=== PATIENT | female | born 1990 | race Caucasian/White ===

== ENCOUNTER 2019-08-03 12:02 | Emergency (ER) | payer OTHER ==
--- OUTSIDE RECORDS SUMMARY | 2019-08-03 12:04 | XMS REPORT | Clinical Summary ---
:1990 Author Organization [facility] Address [address] [place] [address] Care Team Providers Name Role Phone Tyshawn Dietz MD Primary Care Provider Allergies No Known Allergies Medications Medication Sig Dispensed Refills Start Date End Date Status ibuprofen Take 200 mg by 0 Active (ADVIL,MOTRIN) 200 MG mouth every 6 tablet (six) hours as needed for mild pain. Active Problems Problem Noted Date Flexor tendon laceration of left wrist with open wound 12/17/2016 Family History Medical History Relation Name Comments Heart disease Maternal Grandfather Cancer Maternal Grandmother Relation Name Status Comments Maternal Grandfather Maternal Grandmother Social History Tobacco Use Types Packs/Day Years Used Date Current Every Day Smoker Cigarettes Started: 2008 Tobacco Cessation: Counseling Given: No Alcohol Use Drinks/Week oz/Week Comments Yes Sex Assigned at Date Recorded Not on file Job Start Date Occupation Industry Not on file Not on file Not on file Travel History Travel Start Travel End No recent travel history available. 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
--- NOTE | 2019-08-03 12:43 | ER ---
Nurse's Notes [facility] Name: Kendra Hoskins Age: 29 yrs Sex: Female : 1990 Arrival Date: 08/03/2019 Time: 12:05 Bed 7 Private MD: Diagnosis: Laceration without foreign body of thumb without damage to nail-left Presentation: 08/03 12:12 Presenting complaint: Patient states: was trying to cut through some duct tape and iw knife slipped and punctured top of left hand, puncture wound to webbing area between thumb and index finger, states was spurting, pressure dressing applied. Care prior to arrival: Bleeding of injury controlled. 12:12 Acuity: CLYDE 3 iw 12:12 Method Of Arrival: Ambulatory iw 12:16 Transition of care: patient was not received from another setting of care. Onset of iw symptoms was August 03, 2019. Risk Assessment: Do you want to hurt yourself or someone else? Patient reports no desire to harm self or others. Initial Sepsis Screen: Does the patient meet any 2 criteria? No. Patient's initial sepsis screen is negative. Does the patient have a suspected source of infection? No. Patient's initial sepsis screen is negative. 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 Assessment: 12:25 General: Appears uncomfortable, Behavior is calm, cooperative. Pain: Complains of pain aa5 in left hand Pain does not radiate. Pain currently is 8 out of 10 on a pain scale. Quality of pain is described as sharp, Is continuous. Neuro: Level of Consciousness is awake, alert, obeys commands, Oriented to person, place, time, situation. Cardiovascular: Heart tones S1 S2 present Capillary refill < 3 seconds is brisk in bilateral fingers Rhythm is regular. Respiratory: Airway is patent Respiratory effort is even, unlabored, Respiratory pattern is regular, symmetrical. GI: No signs and/or symptoms were reported involving the gastrointestinal system. : No signs and/or symptoms were reported regarding the genitourinary system. EENT: No signs and/or symptoms were reported regarding the EENT system. Derm: Skin is pink, warm \\T\\ dry. Laceration difficult to visualize at this time due to moderate bleeding to site, pressure dressing in place. Musculoskeletal: Range of motion: intact in all extremities. 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 Pt agrees to leave ER at this time. PA was notified. . Vital Signs: 12:17 BP 116 / 82; Pulse 104; Resp 16; Temp 98.0; Pulse Ox 100% on R/A; Weight 49.9 kg; iw Height 5 ft. 0 in. (152.40 cm); Pain 8/10; 12:17 Body Mass Index 21.48 (49.90 kg, 152.40 cm) iw ED Course: 12:05 Patient arrived in ED. as 12:13 Adeola Courtney, RN is Primary Nurse. aa5 12:16 Triage completed. iw 12:22 Raffy Ulloa PA is PHCP. cp 12:22 Grzegorz Rahman MD is Attending Physician. cp Administered Medications: No medications were administered Outcome: 12:50 AMA AMA form signed iw 12:50 Condition: unchanged 12:50 Discharge instructions given to patient, Instructed on need for further evaluation by ER provider, need for suture repair 12:51 Patient left the ED. aa5 Signatures: Laverne Rojas Irene, RN RN Adeola Courtney RN RN aa5 Raffy Ulloa PA PA cp
[2019-08-03 13:02] VITALS: BP 116/82; TEMP 98; O2SAT 100
[2019-08-03] MEDS ORDERED: IBUPROFEN 400 MG TAB ONE (14:15)
[2019-08-03] MEDS ORDERED: LIDOCAINE 1% W/EPI 1:100,000 MDV 20 ML VIAL ONE (14:15)
[2019-08-03] MEDS ORDERED: ACETAMINOPHEN 325 MG TABLET ONE (14:15)
[2019-08-03] MEDS ORDERED: IBUPROFEN 200 MG TAB PO ONE (14:15)
--- NOTE | 2019-08-04 12:58 | EDPHYS ---
Physician Documentation [facility] Name: Kendra Hoskins Age: 29 yrs Sex: Female : 1990 Arrival Date: 08/03/2019 Time: 12:05 Bed 7 Private MD: ED Physician Grzegorz Rahman HPI: 08/03 12:25 This 29 yrs old Female presents to ER via Ambulatory with complaints of cp Puncture Wound To Hand. 12:25 The patient or guardian reports injury, a laceration, clean, pain. cp 12:25 The complaints affect the dorsal side lateral to proximal phalanx of thumb. Context: cp The problem was sustained at work, resulted from use of sharp blade. Onset: The symptoms/episode began/occurred just prior to arrival. Associated signs and symptoms: Pertinent positives: heavy bleeding, Pertinent negatives: cyanosis distally, decreased sensation distally. Severity of symptoms: in the emergency department the symptoms have improved, mildly. 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 ROS: 12:30 Skin: Positive for laceration(s), of the dorsal aspect left hand. cp 12:30 Constitutional: Negative for body aches, chills, fever. cp 12:30 Neuro: Negative for numbness. 12:30 All other systems are negative. Exam: 12:35 Constitutional: The patient appears in no acute distress, alert, awake, well developed, cp well nourished, uncomfortable. 12:35 Head/Face: Normocephalic, atraumatic. cp 12:35 Musculoskeletal/extremity: Tendon exam: specific tendon testing normal through active and passive range of motion 12:35 Skin: injury, laceration(s), of the dorsal aspect lateral to proximal phalanx left thumb, that can be described as clean, linear, with moderate bleeding. 12:35 Neuro: Sensation: no obvious gross deficits. Vital Signs: 12:17 BP 116 / 82; Pulse 104; Resp 16; Temp 98.0; Pulse Ox 100% on R/A; Weight 49.9 kg; iw Height 5 ft. 0 in. (152.40 cm); Pain 8/10; 12:17 Body Mass Index 21.48 (49.90 kg, 152.40 cm) iw MDM: 12:24 Patient medically screened. cp 12:42 Data reviewed: vital signs, nurses notes. cp 12:42 Refusal of service: The patient/guardian displays adequate decision making capability cp and despite a detailed discussion of alternatives, benefits, risks, and consequences refuses: all X-rays, treatment, requesting discharge to f/u at outpatient clinic. Administered Medications: No medications were administered Disposition: 08/03/19 12:42 Patient has left against medical advice. Impression: Laceration without foreign body of thumb without damage to nail - left. - Patients states they are going to Home. - Condition is Stable. - Discharge Instructions: Laceration Care, Adult. Follow up: Private Physician; When: Upon discharge from the Emergency Department; Reason: Re-evaluation by your physician. - Problem is new. - Symptoms have improved. Addendum: 08/08/2019 08:52 Co-signature as Attending Physician, Grzegorz Rahman MD I agree with the assessment and k dr plan of care. Signatures: Grzegorz Rahman MD MD kdr Lissy Jenkins, RN RN iw Adeola Courtney RN RN aa5 Raffy Ulloa PA PA cp Corrections: (The following items were deleted from the chart) 08/03 12:51 12:42 08/03/2019 12:42 Patients has left against medical advice. Impression: Laceration aa5 without foreign body of thumb without damage to nail - left. Patient states they are going to Home. Condition is Stable. Follow up: Private Physician; When: Upon discharge from the Emergency Department; Reason: Re-evaluation by your physician. Problem is new. Symptoms have improved. cp
== END 2019-08-03 12:51 | disposition left against medical advice (07) ==
LOC: ER 12:02
DX: S61.012A Laceration without foreign body of left thumb without damage to nail, initial encounter (principal); W26.8XXA Contact with other sharp object(s), not elsewhere classified, initial encounter; Y93.9 Activity, unspecified; Y92.89 Other specified places as the place of occurrence of the external cause; Y99.8 Other external cause status
CPT/HCPCS: 99281

== ENCOUNTER 2019-08-03 13:44 | Emergency (ER) | payer OTHER ==
--- OUTSIDE RECORDS SUMMARY | 2019-08-03 13:47 | XMS REPORT | Clinical Summary ---
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
--- NOTE | 2019-08-03 15:23 | EDPHYS ---
Physician Documentation [facility] Name: Kendra Hoskins Age: 29 yrs Sex: Female : 1990 Arrival Date: 08/03/2019 Time: 13:45 Bed 8 Private MD: ED Physician Grzegorz Rahman HPI: 08/03 15:00 This 29 yrs old Female presents to ER via Ambulatory with complaints of cp Laceration To Hand. 15:00 The patient has a laceration related to: working, from a knife, occurred at work, The cp injury was accidental. The laceration(s) is(are) located on the dorsal aspect medial to proximal phalanx of left thumb. Onset: The symptoms/episode began/occurred today. Associated signs and symptoms: Pertinent positives: heavy bleeding, Pertinent negatives: dizziness, suspected foreign body. 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 - Ebola Screening: : Patient denies exposure to infectious person Patient denies travel to an Ebola-affected area in the 21 days before illness onset. ROS: 15:05 Constitutional: Negative for body aches, chills, fever, poor PO intake. cp 15:05 Cardiovascular: Negative for chest pain, edema, palpitations. cp 15:05 Respiratory: Negative for cough, shortness of breath, wheezing. 15:05 Abdomen/GI: Negative for abdominal pain, nausea, vomiting, and diarrhea. 15:05 Skin: Positive for laceration(s), of the dorsal aspect medial to proximal phalanx of left thumb. 15:05 Neuro: Negative for numbness, weakness. 15:05 All other systems are negative. Exam: 15:15 Constitutional: The patient appears in no acute distress, alert, awake, non-toxic, well cp developed, well nourished. 15:15 Head/Face: Normocephalic, atraumatic. cp 15:15 Musculoskeletal/extremity: ROM: limited active range of motion due to pain, in the left thumb, Sensation intact. Tendon exam: specific tendon testing normal through active and passive range of motion 15:15 Skin: injury, laceration(s), of the dorsal aspect medial to proximal phalanx of left thumb, that can be described as no foreign body, linear, with moderate bleeding. Vital Signs: 13:47 BP 116 / 88; Pulse 71; Resp 16; Temp 98.8(TE); Pulse Ox 100% on R/A; Weight 49.9 kg; ss Height 5 ft. 0 in. (152.40 cm); Pain 8/10; 13:47 Body Mass Index 21.48 (49.90 kg, 152.40 cm) ss Laceration: 15:25 Wound Repair of 2cm ( 0.8in ) subcutaneous laceration to dorsal aspect medial to cp proximal phalanx of left thumb. Linear shaped.. Distal neuro/vascular/tendon intact. Anesthesia: Local anesthetic administered with 6 mls of 1% lidocaine w/ Epi. Wound prep: Moderate cleansing by me, Wound irrigation by me. Skin closed with 3 4-0 Prolene using interrupted sutures and sterile technique. Dressed with Kerlix. Patient tolerated well. MDM: 15:00 Patient medically screened. cp 15:00 Differential diagnosis: superficial laceration, tendon injury, vascular injury. cp 15:21 Data reviewed: vital signs, nurses notes, radiologic studies, plain films. cp 15:21 Test interpretation: by ED physician or midlevel provider: plain radiologic studies. cp Counseling: I had a detailed discussion with the patient and/or guardian regarding: the historical points, exam findings, and any diagnostic results supporting the discharge/admit diagnosis, radiology results, the need for outpatient follow up, a urologist, occupational physician, to return to the emergency department if symptoms worsen or persist or if there are any questions or concerns that arise at home. Response to treatment: the patient's symptoms have markedly improved after treatment, and as a result, I will discharge patient. 08/03 14:29 Order name: Hand Left 3 View XRAY iw 08/03 15:17 Order name: Splint - Thumb Spica; Complete Time: 15:41 cp 08/03 15:17 Order name: Wound dressing; Complete Time: 15:41 cp Administered Medications: 14:15 Drug: Lidocaine-Epinephrine -1%: (1:100,000) 1 vials {Note: to left thumb by PA.} aa5 Volume: 20 ml; Route: Infiltration; 14:15 Drug: Bupivacaine (0.5 %) 1 vials {Note: to left thumb by PA.} Volume: 10 ml; Route: aa5 Infiltration; Disposition: 15:45 Chart complete. cp Disposition: 08/03/19 15:22 Discharged to Home. Impression: Laceration without foreign body of left thumb without damage to nail. - Condition is Stable. - Discharge Instructions: Laceration Care, Adult. - Prescriptions for Keflex 500 mg Oral Capsule - take 1 capsule by ORAL route every 8 hours for 10 days; 30 capsule. Tramadol 50 mg Oral Tablet - take 1 tablet by ORAL route every 8 hours as needed; 12 tablet. Ibuprofen 600 mg Oral Tablet - take 1 tablet by ORAL route every 6 hours As needed take with food; 30 tablet. - Work release form, Medication Reconciliation Form, Thank You Letter, Antibiotic Education, Prescription Opioid Use form. - Follow up: Private Physician; When: 1 - 2 days; Reason: Wound Recheck. - Problem is new. - Symptoms have improved. Addendum: 08/08/2019 09:43 Co-signature as Attending Physician, Grzegorz Rahman MD I agree with the assessment and k dr plan of care. Signatures: Dispatcher [employer] EDMS Grzegorz Rahman MD MD [facility] Adeola Courtney RN RN aa5 Erika León RN RN ss Raffy Ulloa PA PA cp Corrections: (The following items were deleted from the chart) 08/03 15:41 15:22 08/03/2019 15:22 Discharged to Home. Impression: Laceration without foreign body aa5 of left thumb without damage to nail. Condition is Stable. Forms are Medication Reconciliation Form, Thank You Letter, Antibiotic Education, Prescription Opioid Use. Follow up: Private Physician; When: 1 - 2 days; Reason: Wound Recheck. Problem is new. Symptoms have improved. cp
[2019-08-03 16:17] VITALS: BP 116/88; TEMP 98.8; O2SAT 100
== END 2019-08-03 15:41 | disposition home or self-care (01) ==
LOC: ER 13:44
PROC: 0JQK0ZZ Repair Left Hand Subcutaneous Tissue and Fascia, Open Approach (ICD-10-PCS; principal; 2019-08-03)
DX: S61.012A Laceration without foreign body of left thumb without damage to nail, initial encounter (principal); W26.8XXA Contact with other sharp object(s), not elsewhere classified, initial encounter; Y93.89 Activity, other specified; Y92.89 Other specified places as the place of occurrence of the external cause; Y99.8 Other external cause status
CPT/HCPCS: 99284

== ENCOUNTER 2021-07-05 14:51 | Emergency (ER) | payer BC ==
--- OUTSIDE RECORDS SUMMARY | 2021-07-05 14:55 | XMS REPORT | Continuity of Care Document ---
:1990 Author Organization [facility] t Address [address] [place] [address] Care Team Providers Name Role Phone Maverick Dietz MD Primary Care Physician Lab, Fam Pob I Attending Clinician Unavailable Doctor Unassigned, Name Attending Clinician Unavailable Problems Condition Condition Condition Status Onset Resolution Last Treating Co mments Source Name Details Category Date Date Treatment Clinician Date Flexor Flexor Disease Active Methodi tendon tendon 1-25 st laceration laceration 00:00: Ho spita of left of left 00 l wrist with wrist with open wound open wound Allergies, Adverse Reactions, Alerts This patient has no known allergies or adverse reactions. Family History Family Member Diagnosis Comments Start Date Stop Date Source Maternal grandfather Heart disease [facility] Maternal grandmother Cancer [facility] Social History Social Habit Start Date Stop Date Quantity Comments Source History of Current every [place] tobacco use day smoker Hospital Alcohol intake 2016-12-17 2016-12-17 Current drinker [facility] 00:00:00 00:00:00 of alcohol Hospital (finding) Sex Ass[birth year] At [birth year] [place] 00:00:00 00:00:00 Hospital Smoking Status Start Date Stop Date Source Current every day smoker 2016-12-17 00:00:00 Met [facility] Medications Ordered Filled Start Stop Current Ordering Indication Dosage Frequency Signature Comments Components Source Medication Medication Date Date Medication? Clinician (SIG) Name Name ibuprofen Yes 200mg Q6H Take 200 Met hodi (ADVIL,MOTR 1-[address] [place]) 200 MG 19:48: mouth Hospit a tablet 35 every 6 l (six) hours as needed for mild pain. Procedures This patient has no known procedures. Plan of Care Planned Activity Planned Date Details Comments Source Future Scheduled Test COVID-19 VACCINE (1) [facility] [code = COVID-19 VACCINE (1)] Future Scheduled Test Screening for [facility] malignant neoplasm of cervix (procedure) [code = 622626181] Future Scheduled Test INFLUENZA VACCINE [facility] [code = INFLUENZA VACCINE] Encounters Start End Encounter Admission Attending Care Care Encounter Source Date/Time Date/Time Type Type Clinicians Facility Department ID 2021-06-30 2021-06-30 Laboratory Lab, [facility] [place] [id number] 15:47:42 16:07:42 Only Fam Pob I [facility] [id number] [place] [id number] Professio [phone] nal [address] 2021-06-30 2021-06-30 Orders Doctor MAVERICK [id number] 00:00:00 00:00:00 Only Unassigned, [place] [id number] [place] [facility] [id number] 2020-11-05 2020-11-05 Laboratory Lab, [facility] [id number] 10:48:08 11:08:08 Only Fam Pob I Health [id number] [place] [id number] Professio [id number] nal [address] 2020-11-05 2020-11-05 Letter Doctor MAVERICK [id number] 00:00:00 00:00:00 (Out) Unassigned, [id number] [facility] [id number] Results This patient has no known results.
--- NOTE | 2021-07-05 16:04 | ER ---
Nurse's Notes [facility] Name: Kendra Hoskins Age: 31 yrs Sex: Female : 1990 Arrival Date: 07/05/2021 Time: 14:53 Bed Waiting Private MD: Diagnosis: ED Course: 07/05 14:53 Patient arrived in ED. mr 15:12 Raffy Ulloa PA is PHCP. cp 15:12 Grzegorz Rahman MD is Attending Physician. cp 16:03 Grzegorz Rahman MD is Attending Physician. [email or web address] Administered Medications: No medications were administered Outcome: 16:01 Eloped from waiting room. lm7 16:03 Patient left the ED. [id number] Signatures: Ailyn Diana mr Rae Pam lmRaffy Ford PA PA cp
== END 2021-07-05 16:03 | disposition left against medical advice (07) ==
LOC: ER 14:51
DX: Z02.9 Encounter for administrative examinations, unspecified (principal)